=== PATIENT | female | born 1995 | race Caucasian/White ===

== ENCOUNTER 2018-05-08 06:14 | Inpatient (IN) | payer BC ==
[2018-05-08] MEDS ORDERED: Sodium Chloride 0.9% 10 ML Syringe FLUSH PRN (11:33)
[2018-05-08] MEDS ORDERED: Ondansetron 4 MG/2 ML SDV IVPUSH PRN (11:33)
[2018-05-08] MEDS ORDERED: Nalbuphine 20 MG/ML 1 ML Syringe IVPUSH PRN (11:33)
--- NOTE | 2018-05-08 11:36 | PCM.LDHP ---
L&D History of Present Illness - General Date of Service: 05/08/18 Admit Problem/Dx: Patient Status Order with Admit Dx/Problem 05/08/18 11:33 Patient Status [ADT] Routine Admission Diagnosis/Problem Admission Diagnosis/Problem Normal in third trimester Source of Information: Patient History Limitations: Reports: No Limitations - History of Present Illness Introduction:: Patient is a 22 y/o at 40 1/7 wks who presents for elective IOL. Patient with torn labrum in bilateral hips and due to increasing pain requested IOL. Doing well otherwise. Notes good FM. 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: 0 LMP (Approximate): Musculoskeletal History: Reports: Other (See Below) (Joint pain - bilateral hips ) - Past Surgical History Female Surgical History: Reports: None Social & Family History - Tobacco Use Smoking Status *Q: Never Smoker - Alcohol Use Alcohol Use History: No - Recreational Drug Use Recreational Drug Use: No H&P Review of Systems - Review of Systems: Review Of Systems: See Below General: Reports: No Symptoms Pulmonary: Reports: No Symptoms Cardiovascular: Reports: No Symptoms Gastrointestinal: Reports: No Symptoms Genitourinary: Reports: No Symptoms Musculoskeletal: Reports: Other (hip pain) Psychiatric: Reports: No Symptoms Neurological: Reports: No Symptoms L&D Exam - Exam Exam: See Below - OB Specific Contraction Intensity: Irritability Movement: Active Heart Tones: Present Heart Tones per Min: 145 Presentation: Vertex - Loew Score Lowe Score Cervix Position: Posterior Lowe Score Consistency: Soft Lowe Score Effacement: >80% Lowe Score Dilation: 1-2 cm Lowe Score Infant's Station: -2 Lowe Score Total: 7 - Exam General: Alert, Oriented, Cooperative Lungs: Clear to Auscultation, Normal Respiratory Effort Cardiovascular: Regular Rate, Regular Rhythm GI/Abdominal Exam: Soft, Non-Tender Genitourinary: Normal external exam Extremities: Normal Inspection Skin: Warm, Dry, Intact - Patient Data Result Diagrams: 05/08/18 11:45 - Problem List (1) 40 weeks gestation of SNOMED Code(s): 48537087 ICD Code: Z3A.40 - 40 WEEKS GESTATION OF Status: Acute Current Visit: Yes (2) GBS (group B Streptococcus carrier), +RV culture, currently SNOMED Code(s): 7576552355635, 881745370, 2430233014863 ICD Code: O99.820 - STREPTOCOCCUS B CARRIER STATE COMPLICATING Status: Acute Current Visit: Yes (3) Elective induction of labor planned SNOMED Code(s): 042018338 ICD Code: [id number] - Status: Acute Current Visit: Yes Problem List Initiated/Reviewed/Updated: Yes Orders Last 24hrs: Active Orders 24 hr Category Date Time Status Patient Status [ADT] Routine ADT 05/08/18 11:33 Ordered Communication Order [RC] ASDIRECTED Care 05/08/18 11:33 Ordered Communication Order [RC] ASDIRECTED Care 05/08/18 11:33 Ordered Communication Order [RC] ASDIRECTED Care 05/08/18 11:34 Ordered Heart Tones [RC] ASDIRECTED Care 05/08/18 11:34 Ordered Monitoring [RC] INTERMITTENT Care 05/08/18 11:33 Ordered Non Stress Test [RC] PER UNIT ROUTINE Care 05/08/18 11:33 Ordered Notify Provider [RC] ASDIRECTED Care 05/08/18 11:33 Ordered Notify Provider [RC] PRN Care 05/08/18 11:34 Ordered Peripheral IV Care [RC] . DIRECTED Care 05/08/18 11:34 Ordered Vaginal Exam [RC] ASDIRECTED Care 05/08/18 11:33 Ordered Vital Signs [RC] ASDIRECTED Care 05/08/18 11:33 Ordered Regular Diet [DIET] Diet 05/08/18 Breakfast Ordered CBC W/O DIFF,HEMOGRAM [HEME] Routine Lab 05/08/18 11:33 Ordered RAPID PLASMA REAGIN,RPR [CHEM] Routine Lab 05/08/18 11:34 Ordered TYPE AND SCREEN [BBK] Routine Lab 05/08/18 11:33 Ordered Lactated Ringers [Ringers, Lactated] 1,000 ml Med 05/08/18 11:45 Ordered IV ASDIRECTED Nalbuphine [Nubain] Med 05/08/18 11:33 Ordered 10 mg IVPUSH Q2H PRN Ondansetron [Zofran] Med 05/08/18 11:33 Ordered 4 mg IVPUSH Q4H PRN Oxytocin/Lactated Ringers [Pitocin in LR 10 Units/1,000 Med 05/08/18 11:45 Ordered ML] 10 unit in 1,000 ml IV .CONTINUOUS Oxytocin/Lactated Ringers [Pitocin in LR 10 Units/1,000 Med 05/08/18 11:45 Ordered ML] 10 unit in 1,000 ml IV TITRATE Penicillin G Potassium [Pfizerpen] 2.5 millunits Med 05/08/18 11:45 Ordered Sodium Chloride 0.9% [Normal Saline] 100 ml IV Q4H Penicillin G Potassium [Pfizerpen] 5 millunits Med 05/08/18 11:45 Ordered Sodium Chloride 0.9% [Normal Saline] 100 ml IV ONETIME Sodium Chloride 0.9% [Saline Flush] Med 05/08/18 11:33 Ordered 10 ml FLUSH ASDIRECTED PRN Electronic Heart Tones Ext w TOCO [WOMSER] Oth 05/08/18 11:34 Ordered Routine Electronic Heart Tones Internal [WOMSER] Per Unit Ot 05/08/18 11:34 Ordered Routine Peripheral IV Insertion Adult [OM.PC] Routine Ot 05/08/18 11:33 Ordered Resuscitation Status Routine Resus Stat 05/08/18 11:33 Ordered Assessment/Plan Comment:: 22 y/o at 40 1/7 wks presents for elective IOL * Labs on admission * GBS positive, start PCN for prophylaxis * Pitocin for IOL, arom at later point * Pain control per patient preference * Anticipate
[2018-05-08] MEDS: Lactated Ringers 1,000 ML IV SCH ×3 (11:40→23:54)
[2018-05-08] MEDS ORDERED: Oxytocin/Lactated Ringers 10 UNIT/1,000 ML BAG IV SCH ×2 (11:45)
[2018-05-08] MEDS ORDERED: Penicillin G Potassium 5 MILLUNITS in Sodium Chloride 0.9% 100 ML IV SCH (11:45)
[2018-05-08] MEDS ORDERED: diphenhydrAMINE 50 MG/ML SDV IVPUSH PRN (15:32)
[2018-05-08] MEDS ORDERED: ePHEDrine 50 MG/ML SDV IVPUSH PRN (15:32)
[2018-05-08] MEDS ORDERED: fentaNYL 100 MCG/2 ML SDV EPIDUR PRN (15:32)
[2018-05-08] MEDS ORDERED: Bupivacaine/fentaNYL/NS 100 ML Bag EPIDUR SCH (15:45)
[2018-05-08] MEDS: Penicillin G Potassium 2.5 MILLUNITS in Sodium Chloride 0.9% 100 ML IV SCH ×3 (15:57→23:55)
--- NOTE | 2018-05-08 15:57 | PCM.PREANE ---
Preanesthetic Assessment - Anesthesia/Transfusion/Family Hx Anesthesia History: No Prior Anesthesia Family History of Anesthesia Reaction: No Transfusion History: No Prior Transfusion(s) - Review of Systems General: No Symptoms Pulmonary: No Symptoms Cardiovascular: No Symptoms Gastrointestinal: Abdominal Pain (labor contractions) Neurological: Headache (history of experience with headaches with numbness down left side body - currently no headache) Other: Reports: None - Physical Assessment Pulse: 95 O2 Sat by Pulse Oximetry: 98 Respiratory Rate: 16 Blood Pressure: 127/75 Temperature: 36.8 C Vital Signs: Last Vital Signs Temp 36.8 C 05/08/18 11:33 Pulse 95 05/08/18 11:33 Resp 16 05/08/18 11:33 BP 127/75 05/08/18 11:33 Pulse Ox Height: 1.57 m Weight: 77.111 kg ASA Class: 2 Mental Status: Alert & Oriented x3 Airway Class: Mallampati = 1 Dentition: Reports: [place](s) Thyro-Mental Finger Breadths: 3 Mouth Opening Finger Breadths: 3 ROM/Head Extension: Full Lungs: Clear to Auscultation, Normal Respiratory Effort Cardiovascular: Regular Rate, Regular Rhythm - Lab Values: Laboratory Last Values WBC 15.64 K/mm3 (3.98-10.04) H 05/08/18 11:45 RBC 3.96 M/mm3 (3.98-5.22) L 05/08/18 11:45 Hgb 9.9 gm/L (11.2-15.7) L 05/08/18 11:45 Hct 31.0 % (34.1-44.9) L 05/08/18 11:45 MCV 78.3 fl (79.4-94.8) L 05/08/18 11:45 MCH 25.0 pg (25.6-32.2) L 05/08/18 11:45 MCHC 31.9 g/dl (32.2-35.5) L 05/08/18 11:45 RDW Std Deviation 45.2 fL (36.4-46.3) 05/08/18 11:45 Plt Count 358 K/mm3 (182-369) 05/08/18 11:45 MPV 10.1 fl (9.4-12.3) 05/08/18 11:45 RPR Non-reactive (NONREACTIVE) 05/08/18 Unknown Blood Type O POSITIVE 05/08/18 11:45 Gel Antibody Screen Negative 05/08/18 11:45 - Allergies Allergies/Adverse Reactions: Allergies Allergy/AdvReac Type Severity Reaction Status Date / Time ondansetron Allergy Severe Swollen Verified 04/28/18 10:56 Tongue ranitidine Allergy Severe Swollen Verified 04/28/18 10:56 Tongue - Anesthesia Plan Pre-Op Medication Ordered: None - Acknowledgements Anesthesia Type Planned: Epidural Pt an Appropriate Candidate for the Planned Anesthesia: Yes Alternatives and Risks of Anesthesia Discussed w Pt/Guardian: Yes Pt/Guardian Understands and Agrees with Anesthesia Plan: Yes PreAnesthesia Questionnaire - Past Health History Medical/Surgical History: Denies Medical/Surgical History Gastrointestinal History: Reports: GERD (indigestion) 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: Neurological History: Reports: Migraines - SUBSTANCE USE Smoking Status *Q: Never Smoker Second Hand Smoke Exposure: No Recreational Drug Use History: No - HOME MEDS Home Medications: Home Meds PNV95/Ferrous Fumarate/FA [ Tablet] 1 tab PO DAILY 05/08/18 [History] - CURRENT (IN HOUSE) MEDS Current Meds: Current Medications Diphenhydramine HCl (Benadryl) 25 mg IVPUSH Q6H PRN PRN Reason: Itching Ephedrine Sulfate (Ephedrine Sulfate) 5 mg IVPUSH ASDIRECTED PRN PRN Reason: HYPOTENTSION Fentanyl (Sublimaze) 100 mcg EPIDUR Q3H PRN PRN Reason: Pain Fentanyl/Bupivacaine HCl (Fentanyl/Bupivacaine/Ns 2 Mcg-0.125% 100 Ml) 100 ml EPIDUR ASDIRECTED LAYLA Lactated Ringer's (Ringers, Lactated) 1,000 mls @ 40 mls/hr IV ASDIRECTED LAYLA Last Admin: 05/08/18 11:40 Dose: 40 mls/hr Oxytocin/Lactated Ringer's (Pitocin In Lr 10 Units/1,000 Ml) 10 unit in 1,000 mls @ 12 mls/hr IV TITRATE LAYLA; Protocol Last Titration: 05/08/18 15:30 Dose: 12 munits/min, 72 mls/hr Oxytocin/Lactated Ringer's (Pitocin In Lr 10 Units/1,000 Ml) 10 unit in 1,000 mls @ 500 mls/hr IV .CONTINUOUS LAYLA Penicillin G Potassium 2.5 (millunits/ Sodium Chloride) 100 mls @ 100 mls/hr IV Q4H LAYLA Nalbuphine HCl (Nubain) 10 mg IVPUSH Q2H PRN PRN Reason: pain Sodium Chloride (Saline Flush) 10 ml FLUSH ASDIRECTED PRN PRN Reason: Keep Vein Open Discontinued Medications Penicillin G Potassium 5 (millunits/ Sodium Chloride) 100 mls @ 100 mls/hr IV ONETIME LAYLA Stop: 05/08/18 14:00 Last Admin: 05/08/18 12:15 Dose: 100 mls/hr
[2018-05-08] MEDS ORDERED: Ammonia Inhalant Amp ONE (20:37)
[2018-05-08] MEDS ORDERED: Bupivacaine 0.25% 10 ML SDV ONE (22:00)
[2018-05-08] MEDS ORDERED: fentaNYL/Bupivacaine-NS 2 MCG/ML-0.125%/PF 100 ML Bag EPIDUR SCH (22:43)
[2018-05-09] MEDS: Penicillin G Potassium 2.5 MILLUNITS in Sodium Chloride 0.9% 100 ML IV SCH (03:49)
[2018-05-09] MEDS ORDERED: Misoprostol 200 MCG Tab ONE (06:22)
[2018-05-09] MEDS ORDERED: Misoprostol 200 MCG Tab PO STA (06:45)
--- NOTE | 2018-05-09 06:57 | PCM.DEL ---
L & D Note - General Info Date of Service: 05/09/18 - Delivery Note Labor: Induced by ARM, Induced by Oxytocin Delivery Outcome: Livebirth Infant Delivery Method: Spontaneous Vaginal Delivery-Single Infant Delivery Mode: Vacuum Extraction Presentation: Right Occiput Anterior (AMADEO) Nuchal Cord: None Anesthesia Type: Epidural Amniotic Fluid Description: Clear Episiotomy Type: Right Mediolateral Suture type: Vicryl Suture size: 2-0 Placenta: Intact, Spontaneous Cord: 3 Vessels Estimated Blood Loss: 400 : Bulb Syringe, Stimulated, Warmed, [place] Used Delivery Comments (Free Text/Narrative):: The patient was pushing in the dorsal lithotomy position. Patient had been pushing for approximately 2-1/2 hours when she began to feel exhausted. Did request vacuum extraction. Sterile vaginal exam complete/complete/+2 station. head in AMADEO presentation. Maternal pushing effort was good and the pelvis was felt to be adequate for an instrument assisted delivery. Given maternal exhaustion the decision was made to proceed with vacuum assisted vaginal delivery. The mushroom cup was placed without difficulty with care to avoid the vaginal side abbott. Vacuum cup placed at 6:05 AM. There was a pop off at 6:10 at the start of her fourth contraction. This vacuum effort brought head down to a position. Patient then encouraged to continue pushing with her own effort. At this point heart rate was noted to be in the 80s and did persist therefore 2 minutes. Given this bradycardia a right lateral episiotomy was made. Vacuum placed at 6:13 for less than 15 seconds and delivery had occurred from an AMADEO presentation. Total pressure applied 550 mmHg. Suction was removed following delivery of the head. No nuchal cord. The remainder of the infant delivered without difficulty. Infant placed on maternal abdomen. The umbilical cord was clamped and cut. Placenta allowed time to separate and expelled spontaneously. Inspection of the perineum following delivery with episiotomy sited noted without extension. This was repaired with a running 2-0 Vicryl in a typical fashion. Patient did have a moderate amount of bleeding during repair and so was given 600 mcg of buccal Cytotec with good response. Vacuum Extractor Progress Note - Alternative Labor Strategies Considered Alternative Labor Strategies Considered:: Reports: Yes Strategies Considered:: Reports: Contraction Intensity Adequate, Position Changes Used to Facilitate Rotation & Descent, Empty Bladder Indications Considered:: Reports: Yes Indications:: Reports: Shortening of 2nd Stage for Maternal Benefit Time Out:: Reports: Yes - Patient Prepared Patient Prepared:: Reports: Yes Informed Consent:: Reports: Verbal Risks: Reports: Yes Risks Include:: Reports: Laceration, Shoulder Dystocia, Maternal Injury Anesthesia/Analgesia Adequate:: Reports: Yes - Probability of Success High Probability of Success:: Reports: Yes Weight Estimated:: Reports: AGA Patient Diabetic:: Reports: No Pelvis Adequate:: Reports: Yes Position:: AMADEO Asynclitic:: Reports: No Station:: +2 - Application Time Maximum Application Time & Number of Pop-Offs Predetermined:: Reports: Yes Maximum Pressure Maintained in [place] (cm Hg):: 550 Total Application Time (min): *max=20min: 5 Number of Times Cup Disengaged:: 1 Type of Vacuum Used:: Reports: Cup: Mushroom type Vacuum Extraction: Successful - Exit Strategy Exit strategy available:: Reports: Yes and resuscitation teams readily available:: Reports: Yes - General Info Date of Service: 05/09/18 - Patient Data Vitals - Most Recent: Last Vital Signs Temp 36.8 C 05/08/18 15:57 Pulse 95 05/08/18 15:57 Resp 16 05/08/18 15:57 BP 127/75 05/08/18 15:57 Pulse Ox 98 05/08/18 15:57 Weight - Most Recent: 77.111 kg - Problem List & Annotations (1) Vacuum extraction, delivered, current hospitalization SNOMED Code(s): 459615767 Code(s): O66.5 - ATTEMPTED APPLICATION OF VACUUM EXTRACTOR AND FORCEPS Status: Acute Current Visit: Yes (2) 40 weeks gestation of SNOMED Code(s): 44010273 Code(s): Z3A.40 - 40 WEEKS GESTATION OF Status: Acute Current Visit: Yes (3) Elective induction of labor planned SNOMED Code(s): 159844141 Code(s): QPP0476 - Status: Acute Current Visit: Yes (4) GBS (group B Streptococcus carrier), +RV culture, currently SNOMED Code(s): 6331555907520, 085267888, 2559549285478 Code(s): O99.820 - STREPTOCOCCUS B CARRIER STATE COMPLICATING Status: Acute Current Visit: Yes - Problem List Review Problem List Initiated/Reviewed/Updated: Yes - My Orders Last 24 Hours: My Active Orders 05/08/18 11:33 Patient Status [ADT] Routine Communication Order [RC] ASDIRECTED Communication Order [RC] ASDIRECTED Monitoring [RC] INTERMITTENT Non Stress Test [RC] PER UNIT ROUTINE Notify Provider [RC] ASDIRECTED Vital Signs [RC] ASDIRECTED Nalbuphine [Nubain] 10 mg IVPUSH Q2H PRN Sodium Chloride 0.9% [Saline Flush] 10 ml FLUSH ASDIRECTED PRN Peripheral IV Insertion Adult [OM.PC] Routine Resuscitation Status Routine 05/08/18 11:34 Communication Order [RC] ASDIRECTED Heart Tones [RC] ASDIRECTED Notify Provider [RC] PRN Electronic Heart Tones Ext w TOCO [WOMSER] Routine Electronic Heart Tones Internal [WOMSER] Per Unit Routine 05/08/18 11:45 Lactated Ringers [Ringers, Lactated] 1,000 ml IV ASDIRECTED Oxytocin/Lactated Ringers [Pitocin in LR 10 Units/1,000 ML] 10 unit in 1,000 ml IV .CONTINUOUS Oxytocin/Lactated Ringers [Pitocin in LR 10 Units/1,000 ML] 10 unit in 1,000 ml IV TITRATE 05/08/18 16:00 Penicillin G Potassium [Pfizerpen] 2.5 millunits Sodium Chloride 0.9% [Normal Saline] 100 ml IV Q4H 05/08/18 Breakfast Regular Diet [DIET] - Assessment Assessment:: 22 y/o G1 now P1001 PPD#0 from at 40 2/7 wks - Plan Plan:: VAVD * Routine cares * Encourage breast feeding * Discharge home in 1-2 days
[2018-05-09] MEDS ORDERED: Lanolin 100% Cream 7 GM Tube TOP PRN (07:25)
[2018-05-09] MEDS ORDERED: Benzocaine/Menthol 20%-0.5% Spray 56 GM Canister TOP PRN (07:25)
[2018-05-09] MEDS: Ibuprofen 600 MG Tab PO PRN ×2 (08:30→16:57)
[2018-05-09] MEDS: Docusate Sodium 100 MG Cap PO PRN (08:31)
[2018-05-09] MEDS: Witch Hazel Medicated Pads 40/Jar TOP PRN (08:31)
[2018-05-09] MEDS: Acetaminophen 325 MG Tab PO PRN (10:41)
--- NOTE | 2018-05-09 10:58 | PCM48HPAN ---
Post Anesthesia Note - EVALUATION WITHIN 48HRS OF ANESTHETIC Vital Signs in Normal Range: Yes Patient Participated in Evaluation: Yes Respiratory Function Stable: Yes Airway Patent: Yes Cardiovascular Function Stable: Yes Hydration Status Stable: Yes Pain Control Satisfactory: Yes Nausea and Vomiting Control Satisfactory: Yes Mental Status Recovered: Yes - COMMENTS/OBSERVATIONS Free Text/Narrative:: Tiff has been up moving around this morning. She states her eyes feel swollen and throb. This feeling does not improve in the supine position. I spoke with her regarding a post dural puncture headache. She verbalized understanding, but does not feel this is a headache. She has no soreness in her neck. She did push for four hours. I requested her IV be left in place. Nursing staff will notify Anesthesia if symptoms progress to a headache.
--- NOTE | 2018-05-09 12:50 | PCM.SN ---
- Free Text/Narrative Note: 1630 Doing well. Feeling mildly uncomfortable with contractions. Continue pitocin augmentation per protocol. AROM performed
--- NOTE | 2018-05-10 06:46 | PCM.PNPP ---
- General Info Date of Service: 05/10/18 Functional Status: Reports: Pain Controlled, Tolerating Diet, Ambulating, Urinating - Review of Systems General: Reports: No Symptoms Pulmonary: Reports: No Symptoms Cardiovascular: Reports: No Symptoms Gastrointestinal: Reports: No Symptoms Genitourinary: Reports: Other (Some discomfort - managed with medications ) Musculoskeletal: Reports: No Symptoms Neurological: Reports: No Symptoms - Patient Data Vital Signs - Most Recent: Last Vital Signs Temp 36.8 C 05/10/18 04:37 Pulse 80 05/10/18 04:37 Resp 16 05/10/18 04:37 BP 109/67 05/10/18 04:37 Pulse Ox 98 05/10/18 04:37 Weight - Most Recent: 77.111 kg I&O - Last 24 Hours: Intake & Output 05/09/18 05/09/18 05/10/18 14:59 22:59 06:59 Intake Total 180 Balance 180 Med Orders - Current: Current Medications Acetaminophen (Tylenol) 650 mg PO Q4H PRN PRN Reason: mild pain or fever Last Admin: 05/09/18 10:41 Dose: 650 mg Benzocaine/Menthol (Dermoplast Pain Relief [place]) 0 gm TOP ASDIRECTED PRN PRN Reason: Perineal Comfort Measure Last Admin: 05/09/18 08:31 Dose: 1 can Docusate Sodium (Colace) 100 mg PO BID PRN PRN Reason: Constipation Last Admin: 05/09/18 08:31 Dose: 100 mg Emollient Ointment (Lansinoh Hpa) 0 gm TOP ASDIRECTED PRN PRN Reason: Sore Nipples Ibuprofen (Motrin) 600 mg PO Q6H PRN PRN Reason: Mild pain or fever Last Admin: 05/09/18 16:57 Dose: 600 mg Witch Jill (Tucks) 1 pad TOP ASDIRECTED PRN PRN Reason: Pain Last Admin: 05/09/18 08:31 Dose: 1 tub Discontinued Medications Ammonia (Aromatic Spirit) (Ammonia Aromatic Inhalant) Confirm Administered Dose 1 ampule .ROUTE .STK-MED ONE Stop: 05/08/18 20:38 Last Admin: 05/08/18 21:12 Dose: Not Given Bupivacaine HCl (Sensorcaine-Mpf 0.25%) 10 ml .ROUTE .STK-MED ONE Stop: 05/08/18 22:01 Diphenhydramine HCl (Benadryl) 25 mg IVPUSH Q6H PRN PRN Reason: Itching Ephedrine Sulfate (Ephedrine Sulfate) 5 mg IVPUSH ASDIRECTED PRN PRN Reason: HYPOTENTSION Fentanyl (Sublimaze) 100 mcg EPIDUR Q3H PRN PRN Reason: Pain Last Admin: 05/08/18 23:28 Dose: 100 mcg Fentanyl/Bupivacaine HCl (Fentanyl/Bupivacaine/Ns 2 Mcg-0.125% 100 Ml) 100 ml EPIDUR ASDIRECTED LAYLA Fentanyl/Bupivacaine HCl (Mqsogvae-Gshme-Av 2 Mcg/Ml-0.125%) 100 ml EPIDUR ASDIRECTED LAYLA Last Admin: 05/08/18 23:29 Dose: 100 ml Lactated Ringer's (Ringers, Lactated) 1,000 mls @ 40 mls/hr IV ASDIRECTED LAYLA Last Admin: 05/08/18 23:54 Dose: 40 mls/hr Oxytocin/Lactated Ringer's (Pitocin In Lr 10 Units/1,000 Ml) 10 unit in 1,000 mls @ 12 mls/hr IV TITRATE LAYLA; Protocol Last Titration: 05/09/18 00:38 Dose: 10 munits/min, 60 mls/hr Oxytocin/Lactated Ringer's (Pitocin In Lr 10 Units/1,000 Ml) 10 unit in 1,000 mls @ 500 mls/hr IV .CONTINUOUS LAYLA Last Admin: 05/09/18 03:50 Dose: 500 mls/hr Penicillin G Potassium 5 (millunits/ Sodium Chloride) 100 mls @ 100 mls/hr IV ONETIME LAYLA Stop: 05/08/18 14:00 Last Admin: 05/08/18 12:15 Dose: 100 mls/hr Penicillin G Potassium 2.5 (millunits/ Sodium Chloride) 100 mls @ 100 mls/hr IV Q4H LAYLA Last Admin: 05/09/18 03:49 Dose: 100 mls/hr Misoprostol (Cytotec) Confirm Administered Dose 600 mcg .ROUTE .STK-MED ONE Stop: 05/09/18 06:23 Last Admin: 05/09/18 06:47 Dose: 600 mcg Misoprostol (Cytotec) 600 mcg PO NOW STA Stop: 05/09/18 06:46 Nalbuphine HCl (Nubain) 10 mg IVPUSH Q2H PRN PRN Reason: pain Sodium Chloride (Saline Flush) 10 ml FLUSH ASDIRECTED PRN PRN Reason: Keep Vein Open - Interaction Infant Disposition, : [place] in Room with Family Infant Interaction: Holding Feeding: Attempted ; Nursed Fair/Poor Support Person: - Recovery Exam Fundal Tone: Firm Fundal Level: At Umbilicus Fundal Placement: Right Lochia Amount: Small Lochia Color: Rubra/Red Perineum Description: Edematous Episiotomy/Laceration: Approximated Bladder Status: Voiding Urinary Elimination: Voided - Exam General: Alert, Oriented, Cooperative GI/Abdominal Exam: Soft, Non-Tender Extremities: Normal Inspection Skin: Warm, Dry, Intact - Problem List & Annotations (1) 40 weeks gestation of SNOMED Code(s): 25784273 Code(s): Z3A.40 - 40 WEEKS GESTATION OF Status: Acute Current Visit: Yes (2) Elective induction of labor planned SNOMED Code(s): 125895185 Code(s): UAH0648 - Status: Acute Current Visit: Yes (3) GBS (group B Streptococcus carrier), +RV culture, currently SNOMED Code(s): 2379916458121, 287161920, 4061525591225 Code(s): O99.820 - STREPTOCOCCUS B CARRIER STATE COMPLICATING Status: Acute Current Visit: Yes (4) Vacuum extraction, delivered, current hospitalization SNOMED Code(s): 382759184 Code(s): O66.5 - ATTEMPTED APPLICATION OF VACUUM EXTRACTOR AND FORCEPS Status: Acute Current Visit: Yes - Problem List Review Problem List Initiated/Reviewed/Updated: Yes - My Orders Last 24 Hours: My Active Orders 05/09/18 07:25 Activity as Tolerated [RC] PER UNIT ROUTINE Vital Signs [RC] 03,09,15,21 Acetaminophen [Tylenol] 650 mg PO Q4H PRN Benzocaine/Menthol [Dermoplast Pain Relief [place]] See Dose Instructions TOP ASDIRECTED PRN Docusate Sodium [Colace] 100 mg PO BID PRN Ibuprofen [Motrin] 600 mg PO Q6H PRN Lanolin [Lansinoh HPA] See Dose Instructions TOP ASDIRECTED PRN Witch Jill [Tucks] 1 pad TOP ASDIRECTED PRN Assess Lochia [WOMSER] Per Unit Routine Assess Uterine Involution [WOMSER] Per Unit Routine Breast Pump [WOMSER] Per Unit Routine Heat Therapy [OM.PC] PRN Ice Therapy [OM.PC] Per Unit Routine Perineal Care [OM.PC] Per Unit Routine Peripheral IV Discontinue [OM.PC] Routine Sitz Bath [OM.PC] Per Unit Routine 05/09/18 Breakfast Regular Diet [DIET] 05/10/18 07:25 Heat Therapy [OM.PC] PRN - Assessment Assessment:: 22 y/o G1 now P1001 PPD#1 from at 40 2/7 wks - Plan Plan:: VAVD * Routine cares * Encourage breast feeding * Discharge home tomorrow
--- NOTE | 2018-05-10 07:38 | PCM48HPAN ---
Post Anesthesia Note - EVALUATION WITHIN 48HRS OF ANESTHETIC Vital Signs in Normal Range: Yes Patient Participated in Evaluation: Yes Respiratory Function Stable: Yes Airway Patent: Yes Cardiovascular Function Stable: Yes Hydration Status Stable: Yes Pain Control Satisfactory: Yes Nausea and Vomiting Control Satisfactory: Yes Mental Status Recovered: Yes Pulse Rate: 80 Resp Rate: 16 Temperature: 98.2 F Blood Pressure: 109/67 - COMMENTS/OBSERVATIONS Free Text/Narrative:: Sitting up in bed. She states her eyes still feel a little swollen, but feels it is due to pushing. No other complaints and she said she is doing great!
[2018-05-10] MEDS: Docusate Sodium 100 MG Cap PO PRN (08:46)
[2018-05-10] MEDS: Ibuprofen 600 MG Tab PO PRN (08:46)
[2018-05-11] MEDS: Ibuprofen 600 MG Tab PO PRN ×2 (00:03→10:13)
[2018-05-11] MEDS: Acetaminophen 325 MG Tab PO PRN (04:53)
--- NOTE | 2018-05-11 07:26 | PCM.PNPP ---
- General Info Date of Service: 05/11/18 Functional Status: Reports: Pain Controlled, Tolerating Diet, Ambulating, Urinating - Review of Systems General: Reports: No Symptoms Pulmonary: Reports: No Symptoms Cardiovascular: Reports: No Symptoms Gastrointestinal: Reports: No Symptoms Genitourinary: Reports: Other (Some perineal discomfort, but managed ) Musculoskeletal: Reports: No Symptoms - Patient Data Vital Signs - Most Recent: Last Vital Signs Temp 36.8 C 05/11/18 04:48 Pulse 85 05/11/18 04:48 Resp 16 05/11/18 04:48 BP 117/67 05/11/18 04:48 Pulse Ox 97 05/11/18 04:48 Weight - Most Recent: 77.111 kg I&O - Last 24 Hours: Intake & Output 05/10/18 05/11/18 05/11/18 22:59 06:59 14:59 Intake Total 182 Balance 182 Med Orders - Current: Current Medications Acetaminophen (Tylenol) 650 mg PO Q4H PRN PRN Reason: mild pain or fever Last Admin: 05/11/18 04:53 Dose: 650 mg Benzocaine/Menthol (Dermoplast Pain Relief [place]) 0 gm TOP ASDIRECTED PRN PRN Reason: Perineal Comfort Measure Last Admin: 05/09/18 08:31 Dose: 1 can Docusate Sodium (Colace) 100 mg PO BID PRN PRN Reason: Constipation Last Admin: 05/10/18 08:46 Dose: 100 mg Emollient Ointment (Lansinoh Hpa) 0 gm TOP ASDIRECTED PRN PRN Reason: Sore Nipples Ibuprofen (Motrin) 600 mg PO Q6H PRN PRN Reason: Mild pain or fever Last Admin: 05/11/18 00:03 Dose: 600 mg Witch Jill (Tucks) 1 pad TOP ASDIRECTED PRN PRN Reason: Pain Last Admin: 05/09/18 08:31 Dose: 1 tub Discontinued Medications Ammonia (Aromatic Spirit) (Ammonia Aromatic Inhalant) Confirm Administered Dose 1 ampule .ROUTE .STK-MED ONE Stop: 05/08/18 20:38 Last Admin: 05/08/18 21:12 Dose: Not Given Bupivacaine HCl (Sensorcaine-Mpf 0.25%) 10 ml .ROUTE .STK-MED ONE Stop: 05/08/18 22:01 Diphenhydramine HCl (Benadryl) 25 mg IVPUSH Q6H PRN PRN Reason: Itching Ephedrine Sulfate (Ephedrine Sulfate) 5 mg IVPUSH ASDIRECTED PRN PRN Reason: HYPOTENTSION Fentanyl (Sublimaze) 100 mcg EPIDUR Q3H PRN PRN Reason: Pain Last Admin: 05/08/18 23:28 Dose: 100 mcg Fentanyl/Bupivacaine HCl (Fentanyl/Bupivacaine/Ns 2 Mcg-0.125% 100 Ml) 100 ml EPIDUR ASDIRECTED LAYLA Fentanyl/Bupivacaine HCl (Wfbrawyc-Nberx-Gb 2 Mcg/Ml-0.125%) 100 ml EPIDUR ASDIRECTED LAYLA Last Admin: 05/08/18 23:29 Dose: 100 ml Lactated Ringer's (Ringers, Lactated) 1,000 mls @ 40 mls/hr IV ASDIRECTED LAYLA Last Admin: 05/08/18 23:54 Dose: 40 mls/hr Oxytocin/Lactated Ringer's (Pitocin In Lr 10 Units/1,000 Ml) 10 unit in 1,000 mls @ 12 mls/hr IV TITRATE LAYLA; Protocol Last Titration: 05/09/18 00:38 Dose: 10 munits/min, 60 mls/hr Oxytocin/Lactated Ringer's (Pitocin In Lr 10 Units/1,000 Ml) 10 unit in 1,000 mls @ 500 mls/hr IV .CONTINUOUS LAYLA Last Admin: 05/09/18 03:50 Dose: 500 mls/hr Penicillin G Potassium 5 (millunits/ Sodium Chloride) 100 mls @ 100 mls/hr IV ONETIME LAYLA Stop: 05/08/18 14:00 Last Admin: 05/08/18 12:15 Dose: 100 mls/hr Penicillin G Potassium 2.5 (millunits/ Sodium Chloride) 100 mls @ 100 mls/hr IV Q4H LAYLA Last Admin: 05/09/18 03:49 Dose: 100 mls/hr Misoprostol (Cytotec) Confirm Administered Dose 600 mcg .ROUTE .STK-MED ONE Stop: 05/09/18 06:23 Last Admin: 05/09/18 06:47 Dose: 600 mcg Misoprostol (Cytotec) 600 mcg PO NOW STA Stop: 05/09/18 06:46 Nalbuphine HCl (Nubain) 10 mg IVPUSH Q2H PRN PRN Reason: pain Sodium Chloride (Saline Flush) 10 ml FLUSH ASDIRECTED PRN PRN Reason: Keep Vein Open - Infant Interaction Infant Disposition, : in Room with Family Infant Interaction: Holding Feeding: Breastfed Infant; Nursed Well Support Person: - Recovery Exam Fundal Tone: Firm Fundal Level: 1 Fingerbreadths Below Umbilicus Fundal Placement: Midline Lochia Amount: Scant Lochia Color: Rubra/Red Perineum Description: Intact, Minimal Bruising/Swelling Episiotomy/Laceration: Approximated Bladder Status: Voiding Urinary Elimination: Voided - Exam General: Alert, Oriented, Cooperative GI/Abdominal Exam: Soft, Non-Tender Extremities: Normal Inspection Skin: Warm, Dry, Intact - Problem List & Annotations (1) 40 weeks gestation of SNOMED Code(s): 94342933 Code(s): Z3A.40 - 40 WEEKS GESTATION OF Status: Acute Current Visit: Yes (2) Elective induction of labor planned SNOMED Code(s): 485396178 Code(s): EJD9889 - Status: Acute Current Visit: Yes (3) GBS (group B Streptococcus carrier), +RV culture, currently SNOMED Code(s): 0481297342172, 164068115, 4644049117463 Code(s): O99.820 - STREPTOCOCCUS B CARRIER STATE COMPLICATING Status: Acute Current Visit: Yes (4) Vacuum extraction, delivered, current hospitalization SNOMED Code(s): 901869877 Code(s): O66.5 - ATTEMPTED APPLICATION OF VACUUM EXTRACTOR AND FORCEPS Status: Acute Current Visit: Yes - Problem List Review Problem List Initiated/Reviewed/Updated: Yes - My Orders Last 24 Hours: My Active Orders 05/10/18 07:25 Heat Therapy [OM.PC] PRN 05/11/18 07:25 Ready for Discharge [RC] PER UNIT ROUTINE - Assessment Assessment:: 22 y/o G1 now P1001 PPD#2 from at 40 2/7 wks - Plan Plan:: VAVD * Routine cares * Encourage breast feeding * Discharge home today
--- NOTE | 2018-05-11 07:26 | PCM.DCSUM1 ---
Discharge Summary - Discharge Data Discharge Date: 05/11/18 Discharge Disposition: Home, Self-Care 01 Condition: Good - Discharge Diagnosis/Problem(s) (1) 40 weeks gestation of SNOMED Code(s): 12012374 ICD Code: Z3A.40 - 40 WEEKS GESTATION OF Status: Acute Current Visit: Yes (2) Elective induction of labor planned SNOMED Code(s): 526490788 ICD Code: QST6211 - Status: Acute Current Visit: Yes (3) GBS (group B Streptococcus carrier), +RV culture, currently SNOMED Code(s): 7041277868757, 135669644, 1146667447570 ICD Code: O99.820 - STREPTOCOCCUS B CARRIER STATE COMPLICATING Status: Acute Current Visit: Yes (4) Vacuum extraction, delivered, current hospitalization SNOMED Code(s): 918009569 ICD Code: O66.5 - ATTEMPTED APPLICATION OF VACUUM EXTRACTOR AND FORCEPS Status: Acute Current Visit: Yes - Patient Summary/Data Complications: None Consults: None Recommended Follow-up Testing/Procedures: Follow up in 2-3 weeks for check Hospital Course: Patient is a 22 y/o who presented at 40 1/7 wks for elective IOL. This was done with pitocin and AROM. She progressed well to complete dilation. After about 2 3/4 hours of pushing she became exhausted and requested VAVD. This was done. See delivery note for full details. she did well and was discharged home on PPD#2 - Patient Instructions Diet: Regular Diet as Tolerated Activity: As Tolerated Activity, Other: Pelvic Rest for 6 weeks Driving: May Drive Today Showering/Bathing: May Shower Showering/Bathing, Other: May bathe Notify Provider of: Fever, Increased Pain, Swelling and Redness, Drainage, Nausea and/or Vomiting - Discharge Plan *PRESCRIPTION DRUG MONITORING PROGRAM REVIEWED*: Not Applicable *COPY OF PRESCRIPTION DRUG MONITORING REPORT IN PATIENT [place]: Not Applicable Home Medications: Home Meds PNV95/Ferrous Fumarate/FA [ Tablet] 1 tab PO DAILY 05/08/18 [History] Docusate Sodium [Colace] 100 mg PO BID PRN cap 05/10/18 [Rx] Ibuprofen [Motrin] 600 mg PO Q6H PRN tablet 05/10/18 [Rx] Witch Jill [Tucks] 1 pad TOP ASDIRECTED PRN pad 05/10/18 [Rx] Referrals: Elayne Cobos MD [Primary Care Provider] - (3-6 weeks for check ) - Discharge Summary/Plan Comment DC Time >30 min.: No - Patient Data Vitals - Most Recent: Last Vital Signs Temp 36.8 C 05/11/18 04:48 Pulse 85 05/11/18 04:48 Resp 16 05/11/18 04:48 BP 117/67 05/11/18 04:48 Pulse Ox 97 05/11/18 04:48 Weight - Most Recent: 77.111 kg I&O - Last 24 hours: Intake & Output 05/10/18 05/11/18 05/11/18 22:59 06:59 14:59 Intake Total 182 Balance 182 Med Orders - Current: Current Medications Acetaminophen (Tylenol) 650 mg PO Q4H PRN PRN Reason: mild pain or fever Last Admin: 05/11/18 04:53 Dose: 650 mg Benzocaine/Menthol (Dermoplast Pain Relief [place]) 0 gm TOP ASDIRECTED PRN PRN Reason: Perineal Comfort Measure Last Admin: 05/09/18 08:31 Dose: 1 can Docusate Sodium (Colace) 100 mg PO BID PRN PRN Reason: Constipation Last Admin: 05/10/18 08:46 Dose: 100 mg Emollient Ointment (Lansinoh Hpa) 0 gm TOP ASDIRECTED PRN PRN Reason: Sore Nipples Ibuprofen (Motrin) 600 mg PO Q6H PRN PRN Reason: Mild pain or fever Last Admin: 05/11/18 00:03 Dose: 600 mg Witch Jill (Tucks) 1 pad TOP ASDIRECTED PRN PRN Reason: Pain Last Admin: 05/09/18 08:31 Dose: 1 tub Discontinued Medications Ammonia (Aromatic Spirit) (Ammonia Aromatic Inhalant) Confirm Administered Dose 1 ampule .ROUTE .STK-MED ONE Stop: 05/08/18 20:38 Last Admin: 05/08/18 21:12 Dose: Not Given Bupivacaine HCl (Sensorcaine-Mpf 0.25%) 10 ml .ROUTE .STK-MED ONE Stop: 05/08/18 22:01 Diphenhydramine HCl (Benadryl) 25 mg IVPUSH Q6H PRN PRN Reason: Itching Ephedrine Sulfate (Ephedrine Sulfate) 5 mg IVPUSH ASDIRECTED PRN PRN Reason: HYPOTENTSION Fentanyl (Sublimaze) 100 mcg EPIDUR Q3H PRN PRN Reason: Pain Last Admin: 05/08/18 23:28 Dose: 100 mcg Fentanyl/Bupivacaine HCl (Fentanyl/Bupivacaine/Ns 2 Mcg-0.125% 100 Ml) 100 ml EPIDUR ASDIRECTED LAYLA Fentanyl/Bupivacaine HCl (Moegexjv-Roaxl-Dd 2 Mcg/Ml-0.125%) 100 ml EPIDUR ASDIRECTED LAYLA Last Admin: 05/08/18 23:29 Dose: 100 ml Lactated Ringer's (Ringers, Lactated) 1,000 mls @ 40 mls/hr IV ASDIRECTED LAYLA Last Admin: 05/08/18 23:54 Dose: 40 mls/hr Oxytocin/Lactated Ringer's (Pitocin In Lr 10 Units/1,000 Ml) 10 unit in 1,000 mls @ 12 mls/hr IV TITRATE LAYLA; Protocol Last Titration: 05/09/18 00:38 Dose: 10 munits/min, 60 mls/hr Oxytocin/Lactated Ringer's (Pitocin In Lr 10 Units/1,000 Ml) 10 unit in 1,000 mls @ 500 mls/hr IV .CONTINUOUS LAYLA Last Admin: 05/09/18 03:50 Dose: 500 mls/hr Penicillin G Potassium 5 (millunits/ Sodium Chloride) 100 mls @ 100 mls/hr IV ONETIME LAYLA Stop: 05/08/18 14:00 Last Admin: 05/08/18 12:15 Dose: 100 mls/hr Penicillin G Potassium 2.5 (millunits/ Sodium Chloride) 100 mls @ 100 mls/hr IV Q4H LAYLA Last Admin: 05/09/18 03:49 Dose: 100 mls/hr Misoprostol (Cytotec) Confirm Administered Dose 600 mcg .ROUTE .STK-MED ONE Stop: 05/09/18 06:23 Last Admin: 05/09/18 06:47 Dose: 600 mcg Misoprostol (Cytotec) 600 mcg PO NOW STA Stop: 05/09/18 06:46 Nalbuphine HCl (Nubain) 10 mg IVPUSH Q2H PRN PRN Reason: pain Sodium Chloride (Saline Flush) 10 ml FLUSH ASDIRECTED PRN PRN Reason: Keep Vein Open
[2018-05-11] MEDS: Witch Hazel Medicated Pads 40/Jar TOP PRN (10:13)
[2018-05-11] MEDS: Docusate Sodium 100 MG Cap PO PRN (10:13)
== END 2018-05-11 11:00 | disposition home or self-care (01) | DRG 560 ==
LOC: JD.OB 06:14 → OBSVTOIN 05-09 06:14 → JD.OB 05-09 06:15
PROVIDERS: ADMIT Obstetrics & Gynecology; ATTEND Obstetrics & Gynecology
PROC: 10907ZC Drainage of Amniotic Fluid, Therapeutic from Products of Conception, Via Natural or Artificial Opening (ICD-10-PCS; principal; 2018-05-09)
PROC: 10D07Z6 Extraction of Products of Conception, Vacuum, Via Natural or Artificial Opening (ICD-10-PCS; 2018-05-09)
PROC: 3E033VJ Introduction of Other Hormone into Peripheral Vein, Percutaneous Approach (ICD-10-PCS; 2018-05-09)
PROC: 0W8NXZZ Division of Female Perineum, External Approach (ICD-10-PCS; 2018-05-09)
DX: O48.0 Post-term pregnancy (principal); O99.820 Streptococcus B carrier state complicating pregnancy; Z3A.40 40 weeks gestation of pregnancy; Z37.0 Single live birth
CPT/HCPCS: 01967; 36415; 51701; 51702; 59025; 59409; 85027; 86592; 86850; 86900; 86901; A9270-GY; J2540; J2590; J3010; J3490; J7030; J7120